=== PATIENT | female | born 1970 | race Hispanic/Latino ===

== ENCOUNTER 2017-02-17 16:21 | Emergency (ER) | payer OTHER ==
[~2017-02-17] VITALS: Ht 147.3 cm; Wt 63.6 kg
[~2017-02-17 16:21] MED LIST: ASPI81TA2 PO; LOVA10TA PO
[2017-02-17 16:32] VITALS: BP 174/95; PULSE 71; RESP 16; O2SAT 100
[2017-02-17] MEDS ORDERED: METO100T3 PO (16:49)
--- NOTE | 2017-02-17 16:56 | ED.REPORT ---
HPI-General Illness Date of Service Feb 17, 2017 ED Provider: Hans Mcpherson MD A 46 year old female with a history of hypertension, hyperlipidemia and right- sided CVA presents to the ED complaining of right hip pain. The pt has been experiencing "sore" outer right hip pain for four days that radiates down her leg. The pain has worsened since onset and is now severe enough that the pt is unable to bend her leg. Her pain is exacerbated by walking and accompanied by a feeling of swelling and slight numbness of the outer right hip. The symptoms are not relieved by medication or ointment. She denies back pain, fever, chills , nausea, vomiting, dysuria, weakness or shortness of breath, as well as recent injury. The pt is concerned that her symptoms may be related to her previous stroke. Nursing Notes Stated Complaint: RIGHT HIP PAIN Chief Complaint: Extremity Trauma Nursing Notes Reviewed: Yes Allergies: Coded Allergies: No Known Allergies (Verified Allergy, Unknown, 02/17/17) Scheduled Aspirin-Expunged Drug, Do Not Renew! (Aspirin-Expunged Drug, Do Not Renew!) 81 Mg Tab 81 MG PO DAILY Lovastatin-Expunged Drug, Do Not Renew! (Lovastatin-Expunged Drug, Do Not Renew! ) 10 Mg Tablet 10 MG PO HS Metoprolol Tartrate (Metoprolol Tartrate) 100 Mg Tablet 100 MG PO BID General Time Seen by MD: 16:55 Chief Complaint Other (Hip pain) Hx Obtained From: Patient Arrived By: Walk-in Sudden in Onset?: No Onset Occurred: 4 days ago Symptom Duration: Since onset Recent Healthcare: No recent doctor visit, No recent hospitalization Similar Sx Previous: No Past Medical History Past Medical History CVA 4 years ago Reports: Hyperlipidemia, Hypertension Past Surgical History Reports: Tubal ligation Smoking History Unknown if Ever Smoker Social History Other Social History: Good social support Ambulatory Status Independent Review of Systems Full Review of Systems Constitutional: Denies: Chills, Fever Respiratory: Denies: Non-productive cough, Shortness of breath Cardiovascular: Denies: Chest pain GI: Denies: Nausea, Vomiting Musculoskeletal: Reports: Extremity pain (right lower extremity), Joint pain ( right hip), Denies: Back pain, Neck pain Skin: Denies Rash Neurologic: Reports: Numbness, Denies: Weakness Complete sys rev & neg: except as marked. Physical Exam Constitutional: Well-developed, well-nourished. Not diaphoretic. Head: Normocephalic and atraumatic. Mouth/Throat: Oropharynx is clear and moist. No oropharyngeal exudate. Eyes: EOM are normal. Pupils are equal, round, and reactive to light. Neck: Supple, no tracheal deviation. Cardiovascular: Normal rate, regular rhythm. Equal and intact distal pulses throughout. Pulmonary/Chest: Effort normal and breath sounds normal. No respiratory distress. Abdominal: Soft. No distension. There is no tenderness, rebound, or guarding. Bowel sounds present. Musculoskeletal: Range of motion grossly intact, moving all extremities. No edema or tenderness appreciated. Pain to palpation of the lateral right hip. Pain with external rotation of the right hip. Neurological: AOx3. Grossly nonfocal exam. Strength and sensation intact and equal to bilateral upper and lower extremities. Skin: Warm and dry, no rashes or pallor appreciated. Psychiatric: Appropriate mood and affect. Behavior appears normal. Vital Signs Vital Signs Date Time Temp Pulse Resp B/P Pulse Ox O2 Delivery O2 Flow Rate FiO2 02/17/17 19:19 70 16 140/72 99 Room Air 02/17/17 16:32 36.7 71 16 174/95 100 Room Air Initial VS: Reviewed Interpretation & Diagnostics Interpretation & Diagnostics: Venous Duplex US: IMPRESSION: No evidence of deep venous thrombosis Dictated by: Polo Jiménez M.D. on 02/17/2017 at 19:01 Approved by: Polo Jiménez M.D. on 02/17/2017 at 19:01 Right Femur X-Ray: IMPRESSION: No fracture Dictated by: Polo Jiménez M.D. on 02/17/2017 at 19:24 Approved by: Polo Jiménez M.D. on 02/17/2017 at 19:24 Hip/Pelvis X-Ray: IMPRESSION: Indeterminate linear lucency projecting in the femoral neck, possibly nutrient foramen ( given this finding is not seen on other views). Please correlate clinically. If there is sufficient clinical suspicion, cross-sectional imaging could be performed for further assessment Dictated by: Polo Jiménez M.D. on 02/17/2017 at 19:24 Approved by: Polo Jiménez M.D. on 02/17/2017 at 19:28 Lab Results Interpretation Result Diagram: 02/17/17 1820 02/17/17 1820 Test 02/17/17 18:20 02/17/17 18:47 White Blood Count 11.3th/mm3 (3.8-10.1) Red Blood Count 3.89mil/mm3 (3.90-5.20) Hemoglobin 12.3g/dL (12.0-15.6) Hematocrit 37.5% (35.0-46.0) Mean Corpuscular Volume 96.4fL (81-100) Mean Corpuscular Hemoglobin 31.6pg (27.0-35.0) Mean Corpuscular Hemoglobin Concent 32.8% (32.0-37.0) Red Cell Distribution Width 12.6% (12.3-15.4) Platelet Count 245bil/L (150-400) Neutrophils (%) (Auto) 73.4% (40-74) Lymphocytes (%) (Auto) 15.1% (14-46) Monocytes (%) (Auto) 9.5% (4-12) Eosinophils (%) (Auto) 1.6% (0-5) Basophils (%) (Auto) 0.3% (0-3) Sodium Level 139mEq/L (134-144) Potassium Level 4.2mEq/L (3.5-5.2) Chloride Level 102mEq/L (97-108) Carbon Dioxide Level 25mmol/L (18-29) Blood Urea Nitrogen 11mg/dL (6-24) Creatinine 0.57mg/dL (0.57-1.00) Estimat Glomerular Filtration Rate 164mL/min (>59) Glucose Level 94mg/dL (60-99) Calcium Level 9.1mg/dL (8.5-10.1) Total Bilirubin 0.9mg/dL (0.0-1.2) Aspartate Amino Transf (AST/SGOT) 27U/L (0-50) Alanine Aminotransferase (ALT/SGPT) 36U/L (0-32) Alkaline Phosphatase 80U/L (25-150) Total Protein 7.0g/dL (6.4-8.4) Albumin 3.8g/dL (3.4-5.0) Hold Brito Top Tube Received (Received) X-Ray Interpretation Xray Interpretation: IMPRESSION: No fracture Dictated by: Polo Jiménez M.D. on 02/17/2017 at 19:23 Approved by: Polo Jiménez M.D. on 02/17/2017 at 19:24 X-Ray Ordered: Knee right Interpretation / Wet Read by: Interpret - Radiologist Re-Eval/Medical Decision Med Decision/Clinical Course 46-year-old female with pain to the lateral aspect of her right leg. Does not appear to be swollen, no trauma noted. DVT ultrasound obtained and negative. X -rays of the hip, femur, knee negative for acute fracture. Compartment soft. Does have good range of motion at the hip. No abdominal pain or tenderness to palpation. Neurovascular exam intact distal to the area of pain. Unclear etiology of the patient's symptoms, however it seems reasonable to discharge home with careful return precautions and PCP follow-up. Patient agreeable to the plan as stated, no further questions. Source of Hx: Old records Time of Eval: 19:51 Re-Evaluation/Progress Note: Pt rechecked, who is resting comfortably. The diagnosis and plan for discharge are discussed. The pt understands and agrees with the plan. All questions are addressed at this time. Counseled Regarding: Diagnosis, Lab results, Need for follow-up, When/why to return to ED Discharge & Departure Primary Impression: Right leg pain Disposition: Home Discharge Condition All VS Reviewed: Yes Condition: Stable Patient Instructions: Hip Pain (ED), Leg Pain (ED) Additional Instructions: Thank you for allowing us to be a part of your care. Your x-rays and ultrasound were reassuring. Take ibuprofen and Naproxen as directed for pain and alternate with Tylenol as needed; please see box for instructions. Call your primary care physician on Monday to arrange a follow up appointment for further evaluation. Return to the emergency department if you develop any new or worsening symptoms including worsening numbness or weakness, worsening pain, lightheadedness, chest pain or abdominal pain. Taran por permitirnos ser parte de bernal atencin. Criss doug x y ultrasonido ronen tranquilizadores. Gabriela ibuprofeno y el naproxeno fish dirigido para el dolor y alternan con Tylenol segn sea necesario; por favor vase el recuadro de instrucciones. Llame a bernal mdico de atencin primaria el es para arreglar ervin bipin para la evaluacin adicional de seguimiento. Volver al servicio de urgencias si presenta cualquier sntoma nuevo o que empeora fish empeoramiento de entumecimiento o debilidad, empeoramiento de dolor, mareos, dolor de pecho o dolor abdominal. Referrals: Cricket Santos MD (PCP) Scribe Attestation Portions of this note were transcribed by Cruz Evans. I, Dr. Mcpherson personally performed the history, physical exam and medical decision-making; I reviewed and confirmed the accuracy of the information in the transcribed note. Signed by: Yani Nichols, 02/17/2017 and 2001. copies to: Cricket Santos MD, William B MD Feb 17, 2017 16:56 CRUZ EVANS Feb 17, 2017 17:06
[2017-02-17] MEDS ORDERED: HYDROcodone-APAP 5-325 mg Tablet PO ONE (18:10)
[2017-02-17 18:32] LABS: BASOPHILS % (AUTO) 0.3 % (0-3); EOSINOPHILS % (AUTO) 1.6 % (0-5); MONOCYTES % (AUTO) 9.5 % (4-12); Mean Corpuscular Hemoglobin 31.6 pg (27.0-35.0); Mean Corpuscular Volume 96.4 fL (81-100); NEUTROPHILS % (AUTO) 73.4 % (40-74); Platelet Count 245 bil/L (150-400)
--- NOTE | 2017-02-17 19:03 | DRSVH ---
PROCEDURE: US VEINOUS LEG DUPLEX UNILATERAL, RIGHT INDICATIONS: R leg pain; eval for DVT TECHNIQUE: Real-time imaging, as well as color and pulse Doppler interrogation, were performed of the lower extr emity deep veins from the inguinal ligament to the popliteal fossa. COMPARISON: None. FINDINGS: The deep veins are normally compressible, and free of intraluminal thrombus. Color and pu lse Doppler demonstrate normal phasic intraluminal flow. There is normal augmentation response to di stal compression maneuver. IMPRESSION: No evidence of deep venous thrombosis Dictated by: Polo Jiménez M.D. on 02/17/2017 at 19:01 Approved by: Polo Jiménez M.D. on 02/17/2017 at 19:01
[2017-02-17 19:19] VITALS: BP 140/72; PULSE 70; RESP 16; O2SAT 99
--- NOTE | 2017-02-17 19:25 | DRSVH ---
PROCEDURE: X-RAY RIGHT KNEE, THREE VIEWS ([id number]) INDICATIONS: RIGHT leg pain; evaluate for fx, other abnormality TECHNIQUE: 3 views of the knee were acquired. COMPARISON: None. FINDINGS: Bones: No fractures or dislocations. No suspicious bony lesions. Soft tissues: No joint effusion. No suspicious soft tissue calcifications. IMPRESSION: No fracture Dictated by: Polo Jiménez M.D. on 02/17/2017 at 19:23 Approved by: Polo Jiménez M.D. on 02/17/2017 at 19:24
--- NOTE | 2017-02-17 19:26 | DRSVH ---
PROCEDURE: X-RAY RIGHT FEMUR, TWO VIEWS ([id number]) INDICATIONS: R leg pain; eval for FRACTURE, other abnormality TECHNIQUE: 3 views of the femur were acquired. COMPARISON: None. FINDINGS: Bones: No fractures or dislocations. No suspicious bony lesions. Soft tissues: No suspicious soft tissue calcifications or masses. IMPRESSION: No fracture Dictated by: Polo Jiménez M.D. on 02/17/2017 at 19:24 Approved by: Polo Jiménez M.D. on 02/17/2017 at 19:24
--- NOTE | 2017-02-17 19:30 | DRSVH ---
PROCEDURE: X-RAY PELVIS W/LAT HIP (RT) ([id number]) INDICATIONS: Right leg pain; evaluate for fracture, other abnormality TECHNIQUE: AP pelvis with lateral view(s) of the right hip(s). COMPARISON: None. FINDINGS: Bones: There is a subtle linear lucency projecting in the region of the right femoral neck however se en on one view only. Elsewhere, no fractures or dislocations. Pelvic ring appears intact. No suspic ious bony lesions. Soft tissues: The visualized bowel gas pattern is normal. No suspicious soft tissue calcifications. IMPRESSION: Indeterminate linear lucency projecting in the femoral neck, possibly nutrient foramen ( given this finding is not seen on other views). Please correlate clinically. If there is sufficient c linical suspicion, cross-sectional imaging could be performed for further assessment Dictated by: Polo Jiménez M.D. on 02/17/2017 at 19:24 Approved by: Polo Jiménez M.D. on 02/17/2017 at 19:28
[2017-02-17 20:28] VITALS: BP 139/74; PULSE 74; RESP 16; O2SAT 97
== END 2017-02-17 20:29 | disposition home or self-care (01) ==
LOC: SED 16:21
DX: M79.604 Pain in right leg (principal); M25.451 Effusion, right hip; R20.0 Anesthesia of skin; I10 Essential (primary) hypertension; E78.5 Hyperlipidemia, unspecified; Z86.73 Personal history of transient ischemic attack (TIA), and cerebral infarction without residual deficits